=== PATIENT | female | born 2000 | race Two or more races ===

== ENCOUNTER 2024-07-09 10:55 | Outpatient (CLI) | payer OTHER | END 2024-07-09 11:05 | disposition home or self-care (01) | LOC: SONOGRAMA 10:55 | PROVIDERS: ATTEND Pathology Anatomic Pathology & Clinical Pathology | DX: D34 Benign neoplasm of thyroid gland (principal); E06.3 Autoimmune thyroiditis; E04.8 Other specified nontoxic goiter ==